=== PATIENT | male | born 2000 | race Hispanic/Latino ===

== ENCOUNTER 2023-05-22 19:15 | Emergency (ER) | payer SELFPAY ==
[2023-05-22 20:08] LABS: SARS-CoV-2 NAA Rapid Test Not Detected (NotDetected)
[2023-05-22] MEDS ORDERED: Dexamethasone 10 MG/ML VIAL ONE (20:48)
[2023-05-22] MEDS ORDERED: Lidocaine 2% PF 5 ML VIAL ONE (20:48)
[2023-05-22] MEDS ORDERED: cefTRIAXone (ROCEPHIN) 500 MG VIAL ONE (20:48)
== END 2023-05-22 20:56 | disposition home or self-care (01) ==
LOC: ERS 19:15
DX: J18.9 Pneumonia, unspecified organism (principal); J04.0 Acute laryngitis
CPT/HCPCS: 71045; 96372; J0696; J1100; J2001